=== PATIENT | male | born 1955 | race Caucasian/White ===

== ENCOUNTER 2016-12-02 16:45 | Inpatient (IN) | payer OTHER ==
[~2016-12-02] VITALS: Ht 177.8 cm; Wt 63.5 kg
--- NOTE | ~2016-12-02 | HC ---
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 He was in last week to receive topotecan given over four consecutive days. His CAT scan had been performed prior to this visit and showed ongoing improvement in his recurrent flush of metastatic disease. Over the weekend, he developed increasing cough and shortness of breath with a fever to 102 degrees and subsequently has been admitted for influenza A with a chest x-ray showing multifocal infiltrates. These were not seen on the earlier CT scan. Since being hospitalized, he is feeling better with defervescence. He is accompanied by his . Unfortunately, in spite of his original diagnosis in 01/2010, he has continued to smoke though is now down from original three packs to one pack of cigarettes per day. He originally was treated with carboplatin [employer]-16 and concomitant radiation therapy which led to long lasting remission dating to almost 5 years. He was found to have a recurrence this past November of 2015 when he was placed back on treatment. PAST MEDICAL HISTORY: Is also significant for a previous myocardial infarction at [facility] in June of 2009, followed by cardiac bypass surgery in September of [address] Plunkett at [facility]. He is a known alcoholic as well as having COPD. He has hyperlipidemia, hypertension and medically managed hypothyroidism. ALLERGIES: None are known. MEDICATIONS: Prior to hospitalization include lisinopril, baby aspirin, pravastatin, Synthroid, and ranitidine. FAMILY HISTORY: Negative. SOCIAL HISTORY: As discussed, he continues to smoke and drink. 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 REVIEW OF SYSTEMS: Is as noted in the history of present illness. He has not had any hemoptysis or shaking chills. His cough was not productive of sputum. [facility] [address] [place] [address] CONSULTATION Name: JERED STANLEY Room #: 458-P ADM IN M.R.#: [id number] Admission: 12/02/16 Attend Phys: Brody Robertson MD Discharge: Date of : 57 Report #: [id number] He denies any other new palpable masses or areas of pain. PHYSICAL EXAMINATION: GENERAL: Shows him currently to be afebrile and alert. He is on oxygen. HEENT: Shows by nasal cannula. Moustache shows nicotine staining. NECK: Supple. CHEST: Showed coarse breath sounds. CARDIOVASCULAR: Normal S1, S2. ABDOMEN: No organomegaly, mass, or ascites. EXTREMITIES: No clubbing, cyanosis, edema. NEUROLOGIC: No focal localizing signs. PSYCHIATRIC: Not agitated or confused. SKIN: Shows actinic changes. LYMPHATICS: No palpable supraclavicular adenopathy. ASSESSMENT: 1. Influenza A pneumonia. 2. 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 PLAN: The patient was scheduled to receive Neulasta today as the aforementioned regimen had resulted in earlier neutropenia. This is impacted also by his prior therapy, which included both chemotherapy and radiation. [facility] does not stock Neulasta and I will prescribe a daily Neupogen and follow his white count during his current hospitalization. <ELECTRONICALLY SIGNED> By: Марина Laguna MD 12/05/16 1240 [id number] Марина Laguna MD /nt
--- NOTE | ~2016-12-02 | HC ---
[facility] [place] [address] CONSULTATION Name: FILI STANLEY Room #: 458-[facility] IN M.R.#: [id number] Admission: 12/02/16 Attend Phys: Brody Robertson MD Discharge: 12/05/16 Date of : 57 Report #: [id number] THIS REPORT FOR: //name// CC: Sandie Robertson DATE OF SERVICE: 12/03/2016 CONSULTATION: Infectious diseases. DATE OF CONSULTATION: 12/03/2016. HISTORY OF PRESENT ILLNESS: Fili Stanley is a 60-year-old gentleman who presents to [facility] for admission on 12/02. The patient was complaining of fevers, chills, cough and shortness of breath. Workup demonstrated influenza A and infiltrates on chest x-ray. The patient suffers from advanced cancer of the esophagus. He completed a cycle of chemotherapy on 12/01. He then became febrile and had coughing after his chemo. Other diagnoses include coronary artery disease, myocardial infarction, peripheral artery disease and back pain. The patient has coronary angioplasty and implantation of a venous access port for his chemo. ALLERGIES: The patient has no drug allergies. FAMILY HISTORY: Noncontributory. SOCIAL HISTORY: The patient is . He is a retired web manager. He does smoke cigarettes. He did drink in the past, but quit. REVIEW OF SYSTEMS: GENERAL: Fevers, chills and sweats. The patient says he measured a temperature of 101 at home prior to coming to the hospital. He has generalized aching. He is not complaining of any headache. He did have cough and more dyspnea. GASTROINTESTINAL: No nausea, vomiting, diarrhea or constipation. He has adequate swallowing in spite of the esophageal cancer. GENITOURINARY: No urinary complaints. EXTREMITIES: No complaints. PHYSICAL EXAMINATION: GENERAL: On examination, the patient appears chronically ill, somewhat cachectic, but comfortable and not in any distress. VITAL SIGNS: Show maximum temperature of 99.1. ENT EXAMINATION: Significant for decreased hearing. The patient has alopecia from chemo. NECK: There is wasting in the neck, but the neck is supple. [facility] [address] [place] [address] CONSULTATION Name: FILI STANLEY Room #: 458-P [facility] IN M.R.#: [id number] Admission: 12/02/16 Attend Phys: Brody Robertson MD Discharge: 12/05/16 Date of : 57 Report #: [id number] HEART: Heart sounds S1, S2. PULMONARY: Breath sounds are diminished. The patient did have some productive cough during my interview and examination. ABDOMEN: Belly is thin, soft, not tender. EXTREMITIES: Thin, but otherwise unremarkable. LABORATORY DATA: White count is 7.6, hemoglobin is 7.8 and platelets 175,000. Electrolytes, BUN and creatinine are normal. Lactate is normal. Influenza A antigen is positive. Chest x-ray shows infiltrates at both bases and hilum. ASSESSMENT: Influenza in the setting of cancer of the esophagus and chemotherapy. The infiltrates could be a viral. It is possible there could be a bacterial component or even some heart failure. I would like to simplify the antibiotics and change the Zosyn, Levaquin and vancomycin to Rocephin to cover for bacteria. Continue the oseltamivir for the influenza. We can check urinary antigens for Legionella and Pneumococcus. We will obtain a sputum culture. This may help direct further antibiotic therapy. The patient is somewhat cachectic. I would like the dietitian to see him to see how we can maximize nutrition while the patient is here in the hospital. PLAN: The patient looks fairly comfortable. We will need to watch for development of further respiratory compromise. I would anticipate that he will probably respond to the antiviral therapy and when he is stable, he could be discharged to finish the antibiotics at home. Thank you for requesting infectious disease consultation. Dr. Ly will return on Sunday for further followup. <ELECTRONICALLY SIGNED> By: Stanislav Gold MD 12/17/16 2019 [id number] Stanislav Gold MD /nt
[~2016-12-02 16:45] MED LIST: ACETAMINOPHEN-1 EAC1 PO; ACETAMINOPHEN325 M1 PO; ADULT LOW DOSE81 MG PO; AUGMENTIN 875875 MG PO; COLACE 100 MG100 MG PO; EAR DROPS15 ML OT; EFFIENT10 MG PO; KEFLEX500 MG PO; LISINOPRIL10 MG; LOPRESSOR 12.12.5 MG; LOPRESSOR 12.12.5 MG PO; NITROGLYCERIN0.4 MG SL; NORCO 5-325 TA1 EACH PO; PLAVIX 75 MG TA75 MG PO; PRAVASTATIN SOD10 MG PO; PRENATE ELITE1 EAC1; SEROQUEL XR50 MG PO; SYNTHROID50 MCG PO; VALIUM2 MG PO; VEETIDS 250MG250 M1 PO
[2016-12-02 16:46] VITALS: BP 132/75
[2016-12-02] MEDS ORDERED: HYDROCODONE-AP1 EAC6 PO (17:00)
[2016-12-02] MEDS ORDERED: LINZESS290 MCG PO (17:01)
[2016-12-02] MEDS ORDERED: PLAVIX 75 MG TA75 M1 PO (17:01)
[2016-12-02] MEDS ORDERED: ONDANSETRON ODT8 MG PO (17:02)
[2016-12-02 17:23] LABS: ABSOLUTE NEUTROPHILS 8.5 thou/uL (1.4-8.2); BASOPHILS 0.4 % (0.0-2.0); EOSINOPHILS 0.1 % (0.0-3.0); HEMATOCRIT 24.8 % (42.0-52.0); HEMOGLOBIN 8.3 gm/dL (14.0-18.0); LYMPHOCYTES 5.4 % (24.0-44.0); MCH 32.2 pg (26.0-34.0); MCHC 33.5 % (28.0-37.0); MONOCYTES 3.2 % (1.0-8.0); PLATELET COUNT 226 thou/uL (150-400); POLYS 90.9 % (36.0-66.0); RBC 2.58 mil/uL (4.50-6.00); RDW 20.6 % (10.5-14.5); WBC 9.3 thou/uL (4.0-11.0)
[2016-12-02 17:24] LABS: MANUAL DIFF NO
[2016-12-02 17:33] LABS: CALCIUM 8.3 mg/dL (8.5-10.1); CREATININE 0.7 mg/dL (0.6-1.3); POTASSIUM 3.7 mmol/L (3.5-5.1)
[2016-12-02 17:40] LABS: DIRECT BILIRUBIN 0.2 mg/dL (<0.1-0.3); TOTAL BILIRUBIN 0.4 mg/dL (<0.1-1.0); TOTAL PROTEIN 6.5 g/dL (6.4-8.2)
[2016-12-02 18:16] LABS: ABG SAMPLE TYPE ARTERIAL; BE(vivo) 1.3 mmol/L (-2 to +3); HCO3 23.2 mmol/L (22.0-26.0); LACTATE 1.41 mmol/L (0.5-2.0); O2(CT) 11.7 mL/dL (15.0-23.0); O2Hb 93.8 % (92.0-98.0); PCO2 27.3 mmHg (35.0-45.0); PO2 72.4 mmHg (80.0-100.0); pH 7.548 (7.360-7.450); sO2 96.4 % (92.0-98.0); tCO2 24.1 mmol/L (24.0-30.0)
[2016-12-02 18:17] LABS: ABG COMMENT NO COMPLICATIONS; STICK SITE R.RADIAL
[2016-12-02 18:26] VITALS: BP 105/60
[2016-12-02 20:04] VITALS: BP 107/59
[2016-12-02 23:41] VITALS: BP 103/50
[2016-12-03 03:22] VITALS: BP 104/46
[2016-12-03 04:27] LABS: HEMATOCRIT 23.4 % (42.0-52.0); HEMOGLOBIN 7.8 gm/dL (14.0-18.0); MCH 32.2 pg (26.0-34.0); MCHC 33.3 % (28.0-37.0); MCV 96.8 fL (80.0-100.0); RBC 2.42 mil/uL (4.50-6.00); RDW 20.7 % (10.5-14.5); WBC 7.6 thou/uL (4.0-11.0)
[2016-12-03 04:42] LABS: ALBUMIN 2.7 g/dL (3.4-5.0); CALCIUM 7.9 mg/dL (8.5-10.1); CREATININE 0.7 mg/dL (0.6-1.3); POTASSIUM 3.6 mmol/L (3.5-5.1); TOTAL BILIRUBIN 0.8 mg/dL (<0.1-1.0)
[2016-12-03 08:00] VITALS: BP 101/54
[2016-12-03 12:02] VITALS: BP 102/57
[2016-12-03 19:50] VITALS: BP 102/62
[2016-12-04 04:40] VITALS: BP 97/59
[2016-12-04 08:00] VITALS: BP 123/73
[2016-12-04 09:42] LABS: ABSOLUTE NEUTROPHILS 3.5 thou/uL (1.4-8.2); BASOPHILS 1.2 % (0.0-2.0); EOSINOPHILS 2.7 % (0.0-3.0); HEMATOCRIT 22.2 % (42.0-52.0); HEMOGLOBIN 7.4 gm/dL (14.0-18.0); LYMPHOCYTES 18.6 % (24.0-44.0); MCH 32.3 pg (26.0-34.0); MCHC 33.4 % (28.0-37.0); MCV 96.6 fL (80.0-100.0); MONOCYTES 2.4 % (1.0-8.0); PLATELET COUNT 119 thou/uL (150-400); POLYS 75.1 % (36.0-66.0); RDW 20.4 % (10.5-14.5); WBC 4.7 thou/uL (4.0-11.0)
[2016-12-04 09:43] LABS: MANUAL DIFF NO
[2016-12-04 09:57] LABS: ALBUMIN 2.7 g/dL (3.4-5.0); CALCIUM 7.7 mg/dL (8.5-10.1); CREATININE 0.5 mg/dL (0.6-1.3); POTASSIUM 3.6 mmol/L (3.5-5.1); TOTAL BILIRUBIN 0.5 mg/dL (<0.1-1.0); TOTAL PROTEIN 5.5 g/dL (6.4-8.2)
[2016-12-04 12:15] VITALS: BP 110/77
[2016-12-04 16:35] VITALS: BP 122/64
[2016-12-04 20:04] VITALS: BP 117/68
[2016-12-05 04:28] VITALS: BP 109/64
[2016-12-05 07:15] VITALS: BP 109/70
[2016-12-05 11:15] VITALS: BP 102/59
[2016-12-05] MEDS ORDERED: LEVAQUIN 500 M500 M2 PO (14:10)
[2016-12-05] MEDS ORDERED: OSELB75 PO (14:10)
[2016-12-05 14:32] VITALS: BP 102/59
== END 2016-12-05 15:21 | disposition home or self-care (01) | DRG 871 ==
LOC: ER 16:45 → 4W 18:08 → EROBS 18:08 → 4W 18:46
PROVIDERS: Family Medicine; Nurse Practitioner
DX: A41.9 Sepsis, unspecified organism (principal); J09.X1 Influenza due to identified novel influenza A virus with pneumonia; C15.9 Malignant neoplasm of esophagus, unspecified; I73.9 Peripheral vascular disease, unspecified; I25.10 Atherosclerotic heart disease of native coronary artery without angina pectoris; J44.9 Chronic obstructive pulmonary disease, unspecified; E03.9 Hypothyroidism, unspecified; G89.29 Other chronic pain; M54.9 Dorsalgia, unspecified; E78.5 Hyperlipidemia, unspecified; F17.210 Nicotine dependence, cigarettes, uncomplicated; I25.2 Old myocardial infarction; Z95.5 Presence of coronary angioplasty implant and graft; Z95.1 Presence of aortocoronary bypass graft
CPT/HCPCS: 10045